=== PATIENT | male | born 1995 | race Caucasian/White ===

== ENCOUNTER → 2018-07-03 | Outpatient (CLI) | payer OTHER ==
--- NOTE | 2018-07-03 09:31 | RADIOLOGY REPORT (SQ) ---
EXAM DESCRIPTION: DUPLEX ART/TIERA FLOW COMPLETE COMPLETED DATE/TIME: 07/03/2018 8:33 am REASON FOR STUDY: JESSICA (I70.1) I70.1 ATHEROSCLEROSIS OF RENAL ARTERY COMPARISON: None. TECHNIQUE: Realtime and static grayscale images acquired. Selected color Doppler, velocities and spe ctral images recorded. LIMITATIONS: None. FINDINGS: RIGHT KIDNEY: RENAL ARTERY VELOCITIES: 1.57 cm/sec. Segmental artery velocity 0.64 cm/sec. RENAL VEIN: Color doppler flow present, patent. VELOCITY RATIO: 0.83. Normal waveforms. KIDNEY: Normal size. No significant pathology. LEFT KIDNEY: RENAL ARTERY VELOCITIES: 1.35 cm/sec. Segmental artery velocity 0.47 cm/sec. RENAL VEIN: Color doppler flow present, patent. VELOCITY RATIO: 0.71. Normal waveforms. KIDNEY: Normal size. No significant pathology. BLADDER: Normal. OTHER: No other significant finding. IMPRESSION: NO DOPPLER EVIDENCE OF HEMODYNAMICALLY SIGNIFICANT RENAL ARTERY STENOSIS. COMMENT: NORMAL RENAL ARTERY/AORTA VELOCITY RATIO IS LESS THAN OR EQUAL TO 3.5. TECHNICAL DOCUMENTATION: JOB ID: [id number] [employer]- All Rights Reserved Reading location - IP/workstation name: [email or web address]
== END ==
LOC: RAD 06:58
PROVIDERS: ATTEND Student in an Organized Health Care Education/Training Program
DX: I70.1 Atherosclerosis of renal artery (principal)
CPT/HCPCS: 93975

== ENCOUNTER → 2018-11-19 | Outpatient (CLI) | payer OTHER ==
--- NOTE | 2018-11-19 11:01 | RADIOLOGY REPORT (SQ) ---
EXAM DESCRIPTION: DUPLEX ART/TIERA FLOW COMPLETE COMPLETED DATE/TIME: 11/19/2018 9:03 am REASON FOR STUDY: I70.1 ATHEROSCLEROSIS OF RENAL ARTERY I70.1 ATHEROSCLEROSIS OF RENAL ARTERY COMPARISON: 07/03/2018 bilateral renal artery Doppler TECHNIQUE: Realtime and static grayscale images acquired. Selected color Doppler, velocities and spe ctral images recorded. LIMITATIONS: Unable to visualize the renal artery origins off the aorta due to midline bowel gas. FINDINGS: RIGHT KIDNEY: RENAL ARTERY VELOCITIES: At the hilum, 75 cm/sec. Segmental artery velocity 30 cm/sec. RENAL VEIN: Color doppler flow present, patent. VELOCITY RATIO: 0.5. Normal waveforms. KIDNEY: 12.4 cm in length with diffuse increased cortical echogenicity. No cysts, stones, or mass es. LEFT KIDNEY: RENAL ARTERY VELOCITIES: At the hilum, 75 cm/sec. Segmental artery velocity 78 cm/sec. RENAL VEIN: Color doppler flow present, patent. VELOCITY RATIO: 0.5. Normal waveforms. KIDNEY: 10 cm in length with diffuse increased cortical echogenicity. No cysts, stones, or masses. BLADDER: Normal. Bilateral ureteral jets are identified OTHER: No other significant finding. IMPRESSION: Limited study, unable to visualize the renal artery origins off the aorta. Renal artery velocities at the rivera are normal. Increased cortical echogenicity of both kidneys. This is abnormal but nonspecific. No cysts, stones , hydronephrosis, or masses. COMMENT: NORMAL RENAL ARTERY/AORTA VELOCITY RATIO IS LESS THAN OR EQUAL TO 3.5. TECHNICAL DOCUMENTATION: JOB ID: [id number] [employer]- All Rights Reserved Reading location - IP/workstation name: [email or web address]
== END ==
LOC: RAD 08:00
PROVIDERS: ATTEND Hospitalist
DX: I70.1 Atherosclerosis of renal artery (principal)
CPT/HCPCS: 93975